=== PATIENT | male | born 1965 | race African-American/Black ===

== ENCOUNTER 2020-12-28 04:20 | Emergency (ER) | payer OTHER ==
[~2020-12-28] VITALS: Ht 188 cm; Wt 98.4 kg
[2020-12-28] MEDS ORDERED: ADVIL200 M3 PO (04:45)
[2020-12-28] MEDS ORDERED: OXYCODONE HCL5 MG PO (04:46)
[2020-12-28 06:20] VITALS: BP 99/53
== END 2020-12-28 06:20 | disposition still patient (30) ==
LOC: ER 04:20
DX: S80.852A Superficial foreign body, left lower leg, initial encounter (principal); M79.605 Pain in left leg; Z79.1 Long term (current) use of non-steroidal anti-inflammatories (NSAID); Z79.891 Long term (current) use of opiate analgesic; W22.8XXA Striking against or struck by other objects, initial encounter; Y93.89 Activity, other specified; Y92.096 Garden or yard of other non-institutional residence as the place of occurrence of the external cause; Y99.8 Other external cause status